=== PATIENT | female | born 1940 | race Caucasian/White ===

== ENCOUNTER 2018-08-11 20:07 | Emergency (ER) | payer MEDICARE ==
[~2018-08-11] VITALS: Ht 157.5 cm; Wt 72.1 kg
[2018-08-11] MEDS ORDERED: TRAMADOL HCL 50 MG TAB PO ONE (20:15)
--- NOTE | 2018-08-11 20:51 | Diagnostic Imaging Report ---
Exam: Left wrist Series. History: Status post fall on left hand Comparison: None. Findings: 3 views of the left wrist. There is decreased bone mineralization, which limits evaluation of the bony structures.. No acute, displaced fracture or dislocation in the wrist. Please see hand films for description of fifth finger fracture. Joint spaces are relatively preserved. No abnormal soft tissue calcification or mass. No significant soft tissue swelling. Impression: 1. No acute abnormal disease in the wrist. Please see dedicated hand films for description of hand fracture Signed by: Dr. Jeff Carvajal M.D. on 08/11/2018 8:47 PM
--- NOTE | 2018-08-11 20:54 | Diagnostic Imaging Report ---
Exam: Left Hand Series. History: Status post fall on left hand Comparison: None. Findings: 3 views of the left hand. There is decreased bone mineralization, which limits evaluation of the bony structures. Acute, displaced transverse fracture through the base of the fifth finger proximal phalanx, with dorsal and lateral angulation of the distal fracture fragment. No intra-articular extension. Other bony structures are intact. Joint space narrowing and osteophytosis of the distal interphalangeal joints, worse at the second finger, were mild subluxation is noted. No abnormal soft tissue calcification or mass. No cystic erosive changes. Soft tissue swelling in the fifth finger. Impression: 1. Acute, displaced transverse fracture through the base of the fifth finger proximal phalanx, with dorsal and lateral angulation of the distal fracture fragment. No intra-articular extension. Associated soft tissue swelling. 2. Findings in the distal interphalangeal joints consistent with osteoarthritis Signed by: Dr. Jeff Carvajal M.D. on 08/11/2018 8:51 PM
--- NOTE | 2018-08-11 21:27 | Diagnostic Imaging Report ---
Exam: Left Hand Series. History: Fifth finger fracture Comparison: Left hand films 08/11/2018 Findings: See impression. Impression: 1. Status post reduction of the previously visualized acute, displaced transverse fracture through the base of the fifth finger proximal phalanx, with markedly improved/nearly anatomical alignment. Interval placement of splint. 2. Otherwise, no significant interval change Signed by: Dr. Jeff Carvajal M.D. on 08/11/2018 9:23 PM
== END 2018-08-11 21:29 | disposition home or self-care (01) ==
LOC: ER 20:07
DX: M79.642 Pain in left hand (principal); S62.617A Displaced fracture of proximal phalanx of left little finger, initial encounter for closed fracture; W18.30XA Fall on same level, unspecified, initial encounter; Y92.008 Other place in unspecified non-institutional (private) residence as the place of occurrence of the external cause; I10 Essential (primary) hypertension
CPT/HCPCS: 99283

== ENCOUNTER → 2020-10-23 | Emergency (ER) | payer MEDICARE ==
[~2020-10-23] VITALS: Ht 157.5 cm; Wt 72.1 kg
== END | disposition home or self-care (01) ==
LOC: ER 17:15
DX: M79.604 Pain in right leg (principal); M79.89 Other specified soft tissue disorders; I10 Essential (primary) hypertension
CPT/HCPCS: 93971; 99283